=== PATIENT | female | born 1975 | race Two or more races ===

== ENCOUNTER 2021-01-06 09:00 | Day surgery (SDC) | payer OTHER ==
[2021-01-01 17:54] VITALS: BMI 34.3
[2021-01-06] MEDS ORDERED: ceFAZolin SODIUM 1 GM VIAL IVPB ONE (12:35)
[2021-01-06] MEDS ORDERED: IBUPROFEN 600 MG TABLET (FP) PO PRN (13:29)
[2021-01-06] MEDS ORDERED: ONDANSETRON 4 MG/2 ML VIAL IVPUSH PRN ×2 (13:29→13:37)
[2021-01-06] MEDS ORDERED: oxyCODONE HCL 5 MG TABLET PO PRN ×2 (13:29→13:37)
[2021-01-06] MEDS ORDERED: IBUPROFEN 800 MG/8 ML IJ IVPB PRN (13:29)
[2021-01-06] MEDS ORDERED: ELECTROLYTE-148 SOLN 1,000 ML IV SCH (13:30)
[2021-01-06] MEDS ORDERED: PROMETHAZINE HCL 25 MG/1 ML VIAL IVPUSH PRN (13:37)
[2021-01-06] MEDS ORDERED: oxyCODONE HCL 5 MG TABLET ONE (16:10)
[2021-01-06 18:30] VITALS: BP 119/60; PULSE 70; TEMP 98.3
== END 2021-01-06 17:05 | disposition home or self-care (01) ==
LOC: JASU-SURG 09:00
PROVIDERS: ATTEND Obstetrics & Gynecology
PROC: 0UDB8ZZ Extraction of Endometrium, Via Natural or Artificial Opening Endoscopic (ICD-10-PCS; principal; 2021-01-06 11:00)
DX: N92.1 Excessive and frequent menstruation with irregular cycle (principal); D25.9 Leiomyoma of uterus, unspecified
CPT/HCPCS: 81025; 94760